=== PATIENT | female | born 1980 | race Caucasian/White ===

== ENCOUNTER 2016-08-31 08:27 | Emergency (ER) | payer OTHER ==
[~2016-08-31] VITALS: Ht 167.6 cm; Wt 41.2 kg
[~2016-08-31 08:27] MED LIST: AUGMENTIN875 MG PO; IBUPROFEN600 MG PO; KEFLEX500 MG PO; MOTRIN600 MG PO; MOTRIN800 MG PO; NAPROSYN500 MG PO; NOHOMEMEDS; NORCO 7.5/321 TABLET PO; PERCOCET 5/31 TABLET PO; TRAMADOL HCL50 MG PO; ULTRAM50 MG PO; ZOFRAN4 MG PO
[2016-08-31 10:11] VITALS: BP 115/84
[2016-08-31] MEDS ORDERED: TRAMADOL HCL50 MG PO (10:33)
[2016-08-31] MEDS ORDERED: MOTRIN600 MG PO (10:33)
== END 2016-08-31 10:54 | disposition home or self-care (01) ==
LOC: EME 08:27
DX: M54.16 Radiculopathy, lumbar region (principal); M79.605 Pain in left leg
CPT/HCPCS: 93971; 99281; 99284; J1100

== ENCOUNTER 2017-05-08 23:39 | Emergency (ER) | payer OTHER ==
[~2017-05-08] VITALS: Ht 162.6 cm; Wt 42.7 kg
[2017-05-09 00:45] LABS: EOSINOPHIL (%) 0.9 % (0-5); EOSINOPHIL COUNT 0.1 K/uL (0-0.3); HEMATOCRIT 40.2 % (36.0-46.0); IMMATURE GRANULOCYTE (%) 0.3 % (0.0-0.7); INSTRUMENT ABS NEUTROPHIL CT 5.2 K/uL; LYMPHOCYTE COUNT 3.1 K/uL (1.0-2.8); MCH 32.5 PG (29.0-34.0); MCHC 34.1 G/DL (30.0-36.0); MCV 95.5 FL (83-99); MEAN PLAT.VOLUME 8.3 uM^3 (9.5-12.4); MONOCYTE (%) 6.2 % (3-12); MONOCYTE COUNT 0.6 K/uL (0-0.8); NEUTROPHIL (%) 57.6 % (45-76); NEUTROPHIL COUNT 5.2 K/uL (1.8-6.4); PLATELET COUNT 241 K/uL (156-360); RBC DIS.WIDTH-CV 12.9 % (11.8-14.6); RBC DIS.WIDTH-SD 45.3 % (39-53); RED BLOOD COUNT 4.21 M/uL (3.80-5.20)
[2017-05-09 00:54] LABS: CHLORIDE 99 mEq/L (99-109); POTASSIUM 3.7 mEq/L (3.7-5.4); SODIUM 136 mEq/L (136-147)
[2017-05-09 00:56] LABS: GLUCOSE 112 mg/dL (70-99)
[2017-05-09 00:57] LABS: ANION GAP 8 MEQ/L (2-14)
[2017-05-09 00:58] LABS: TOTAL BILIRUBIN 0.3 mg/dL (0.0-1.0)
[2017-05-09 00:59] LABS: ALKALINE PHOSPHATASE 78 IU/L (3-129)
[2017-05-09 01:00] LABS: GFR ESTIMATE (CALCULATED) > 59 mL/min/
[2017-05-09 01:01] LABS: UREA NITROGEN (BUN) 14 mg/dL (9-23)
[2017-05-09 01:03] LABS: LIPASE 45 U/L (1.0-51.0)
[2017-05-09 01:10] LABS: QUANTITATIVE HCG < 4.0 MIU/ML
[2017-05-09] MEDS ORDERED: INDOCIN50 MG PO (01:29)
[2017-05-09 01:47] VITALS: BP 96/76
== END 2017-05-09 01:56 | disposition home or self-care (01) ==
LOC: EXP 23:39 → EME 23:39 → EXP 05-09 01:56
PROVIDERS: Physician Assistant
DX: R09.1 Pleurisy (principal); J06.9 Acute upper respiratory infection, unspecified; F17.200 Nicotine dependence, unspecified, uncomplicated; F41.9 Anxiety disorder, unspecified; Z98.51 Tubal ligation status
CPT/HCPCS: 71020; 80053; 83690; 84702; 85025; 99281; 99284

== ENCOUNTER 2017-05-27 10:07 | Emergency (ER) | payer OTHER ==
[~2017-05-27] VITALS: Ht 165.1 cm; Wt 40.3 kg
[~2017-05-27 10:07] MED LIST changes: +INDOCIN50 MG PO
[2017-05-27 12:55] LABS: HEMATOCRIT 46.7 % (36.0-46.0); HEMOGLOBIN 15.8 G/DL (11.9-15.5); MCH 32.4 PG (29.0-34.0); MCHC 33.8 G/DL (30.0-36.0); MCV 95.9 FL (83-99); PLATELET COUNT 184 K/uL (156-360); RBC DIS.WIDTH-SD 46.5 % (39-53); RED BLOOD COUNT 4.87 M/uL (3.80-5.20); WHITE BLOOD COUNT 10.5 K/uL (4.1-10.2)
[2017-05-27 13:01] LABS: CHLORIDE 104 mEq/L (99-109); POTASSIUM 4.1 mEq/L (3.7-5.4); SODIUM 134 mEq/L (136-147)
[2017-05-27 13:02] LABS: GLUCOSE 83 mg/dL (70-99)
[2017-05-27 13:06] LABS: CREATININE 0.9 mg/dL (0.6-1.3); GFR ESTIMATE (CALCULATED) > 59 mL/min/
[2017-05-27 13:07] LABS: UREA NITROGEN (BUN) 22 mg/dL (9-23)
[2017-05-27 13:10] LABS: TROP-I INTERPRETATION NEGATIVE; TROPONIN-I < 0.01 ng/mL (0.0-0.30)
[2017-05-27 15:31] LABS: QUANTITATIVE HCG < 4.0 MIU/ML
[2017-05-27] MEDS ORDERED: PREDNISONE20 MG PO (16:06)
[2017-05-27] MEDS ORDERED: ZITHROMAX250 MG PO (16:06)
[2017-05-27] MEDS ORDERED: PROVENTIL HFA6.7 GM IH (16:06)
[2017-05-27 16:29] VITALS: BP 104/74
== END 2017-05-27 16:30 | disposition home or self-care (01) ==
LOC: EME 10:07
PROVIDERS: Emergency Medicine
DX: J40 Bronchitis, not specified as acute or chronic (principal); R07.9 Chest pain, unspecified; F11.11 Opioid abuse, in remission; F17.200 Nicotine dependence, unspecified, uncomplicated; F41.9 Anxiety disorder, unspecified
CPT/HCPCS: 71020; 71275; 80048; 84484; 84702; 85027; 85379; 93005; 94640; 99281; 99284; J1885; J7030; J7512

== ENCOUNTER 2017-09-13 10:22 | Emergency (ER) | payer OTHER ==
[~2017-09-13 10:22] MED LIST changes: +PREDNISONE20 MG PO; +PROVENTIL HFA6.7 GM IH; +ZITHROMAX250 MG PO
== END 2017-09-13 13:42 | disposition left against medical advice (07) ==
LOC: EME 10:22
DX: K08.89 Other specified disorders of teeth and supporting structures (principal); Z53.21 Procedure and treatment not carried out due to patient leaving prior to being seen by health care provider

== ENCOUNTER 2017-09-13 13:07 | Emergency (ER) | payer OTHER | END 2017-09-13 13:45 | disposition left against medical advice (07) | LOC: EME 13:07 | DX: Z53.21 Procedure and treatment not carried out due to patient leaving prior to being seen by health care provider (principal) ==

== ENCOUNTER 2017-09-20 08:27 | Emergency (ER) | payer OTHER ==
[~2017-09-20] VITALS: Ht 165.1 cm; Wt 45.0 kg
[2017-09-20 11:34] VITALS: BP 137/72
== END 2017-09-20 11:34 | disposition home or self-care (01) ==
LOC: EME 08:27
DX: L72.3 Sebaceous cyst (principal); F41.9 Anxiety disorder, unspecified; F17.200 Nicotine dependence, unspecified, uncomplicated
CPT/HCPCS: 99281; 99283